=== PATIENT | male | born 1985 | race Hispanic/Latino ===

== ENCOUNTER 2024-09-18 09:42 | Emergency (ER) | payer OTHER ==
[~2024-09-18] VITALS: Ht 160 cm; Wt 47.2 kg
[2024-09-18] MEDS ORDERED: BACTRIM DS TAB1 EACH PO (10:24)
[2024-09-18] MEDS ORDERED: BISACODYL10 MG PR (10:24)
[2024-09-18] MEDS ORDERED: MAPAP500 MG PO (10:24)
[2024-09-18] MEDS ORDERED: MIRALAX17 GM PO (10:25)
[2024-09-18] MEDS ORDERED: ACID CONTROLLER20 MG PO (10:25)
[2024-09-18] MEDS ORDERED: EVAC340 GM PO (10:25)
[2024-09-18] MEDS ORDERED: QUETIAPINE FUM400 M1 PO (10:26)
[2024-09-18] MEDS ORDERED: SENNA8.6 MG PO (10:26)
[2024-09-18] MEDS ORDERED: VANCOMYCIN1.25 GM/22 IV (10:26)
[2024-09-18 12:45] VITALS: BP 121/69
== END 2024-09-18 12:45 | disposition home or self-care (01) ==
LOC: ED 09:42
DX: T82.898A Other specified complication of vascular prosthetic devices, implants and grafts, initial encounter (principal); Y71.8 Miscellaneous cardiovascular devices associated with adverse incidents, not elsewhere classified
CPT/HCPCS: 99283